=== PATIENT | male | born 1960 | race Caucasian/White ===

== ENCOUNTER 2023-11-27 20:50 | Observation (INO) ==
[2023-11-27 22:36] LABS: Basophils # (auto) 0.06 K/uL (0.00-0.20); Basophils % (auto) 0.5 %; Eosinophils # (auto) 0.14 K/uL (0.00-0.50); Eosinophils % (auto) 1.3 %; Hematocrit (blood only) 48.5 % (42.0-52.0); Hemoglobin 16.6 g/dl (14.0-18.0); Immature Granulocytes # (auto) 0.04 K/uL (0.01-0.20); Immature Granulocytes % (auto) 0.4 %; Lymphocytes # (auto) 1.49 K/uL (1.20-3.40); Lymphocytes % (auto) 13.4 %; Mean Corpuscular Hemoglobin 31.6 pg (25.0-34.0); Mean Corpuscular Hgb Conc 34.2 g/dL (32.0-36.0); Mean Corpuscular Volume 92.2 fL (80.0-100.0); Mean Platelet Volume 10.2 fL (9.4-12.4); Monocytes # (auto) 0.82 K/uL (0.11-0.59); Monocytes % (auto) 7.4 %; Neutrophils # (auto) 8.55 K/uL (1.40-6.50); Platelet Count 208 K/uL (130-400); RDW Coefficient of Variation 14.8 % (11.5-14.5); RDW Standard Deviation 50.5 fL (36.4-46.3); Red Blood Count 5.26 M/uL (4.70-6.10)
[2023-11-27 22:53] LABS: Appearance Urine Clear (Clear); Bacteria Urine Automated None Seen (None Seen); Bilirubin Urine Negative (Negative); Blood Urine Negative (Negative); Cast Urine Automated 0-2 /lpf (0-2); Color Urine Dark Yellow; Epithelial Cell Urine Auto 0-2 /hpf (0-2); Glucose Urine UA Negative (Negative); Ketones Urine Negative (Negative); Leukocyte Esterase Urine 1+ (Negative); Nitrite Urine Negative (Negative); Protein Urine Negative (Negative); RBC Urine Automated 0-2 /hpf (0-2); Specific Gravity Urine 1.024 (1.000-1.030); Urobilinogen Urine Negative (Negative); pH Urine 5.5 (4.5-7.5)
[2023-11-27 22:56] LABS: Albumin Globulin Ratio 1.4 (0.9-2); Albumin Level 4.3 gm/dl (3.4-5.0); BUN Creatinine Ratio 15.8 (10-20); Bilirubin,Total 0.3 mg/dl (0.2-1.0); Calcium 9.2 mg/dl (8.6-10.3); Creatinine Clr Calc Pharmacy 55.2 ml/min; Est GFR (Non-African American) 39.7 ml/min; Globulin 3.1 gm/dl (2.5-4.0); Potassium 4.5 mmol/L (3.5-5.1); Total Protein 7.4 gm/dl (6.0-8.3)
[2023-11-28] MEDS: SODIUM CHLORIDE 0.9% 1,000 ML IV ONE (01:37)
[2023-11-28] MEDS: ONDANSETRON INJ 2 MG/ML 2 ML VIAL IV STA (01:38)
[2023-11-28] MEDS: KETOROLAC TROMETHAMINE 15 MG/ML VIAL IV STA (01:39)
[2023-11-28] MEDS: HYDROmorphone INJ 1 MG/ML SYRINGE IV STA ×3 (01:40→04:27)
--- NOTE | 2023-11-28 02:19 | CT Scan Report ---
Exam(s): CT ABDOMEN + PELVIS Without Contrast EXAM: CT Abdomen and Pelvis Without Intravenous Contrast CLINICAL HISTORY: Reason for exam: eval for right ureteral stone. TECHNIQUE: Axial computed tomography images of the abdomen and pelvis without intravenous contrast. CTDI is 28.14 mGy and DLP is 1479.25 mGy-cm. Automated exposure control was utilized for the study. A dose lowering technique was utilized adhering to the principles of ALARA. COMPARISON: . FINDINGS: Lung bases: Unremarkable. No mass. No consolidation. ABDOMEN: Liver: Unremarkable. Gallbladder and bile ducts: Unremarkable. No calcified stones. No ductal dilation. Pancreas: Unremarkable. No ductal dilation. Spleen: Unremarkable. No splenomegaly. Adrenals: Unremarkable. No mass. Kidneys and ureters: Mild right hydronephrosis due to a proximal right ureteral stone seen at the right UP junction measuring 7.5 mm. Tiny stones within the left kidney, largest measuring 2.1 mm. Otherwise normal left kidney. Stomach and bowel: Scattered diverticulosis throughout the colon with no signs of diverticulitis. No obstruction. PELVIS: Appendix: Nonvisualized appendix. Bladder: The urinary bladder is decompressed. No stones. Reproductive: Nonspecific dystrophic calcification within the prostate gland. ABDOMEN and PELVIS: Intraperitoneal space: Unremarkable. No free air. No significant fluid collection. Bones/joints: Degenerative disease of the spine with posterior fusion at L5-S1. Minimal anterolisthesis of L4 on L5 with no pars defect. No acute fracture. No dislocation. Soft tissues: Small fat-containing umbilical hernia. Vasculature: Mild atherosclerotic disease of aorta with mild distal aneurysmal dilatation measuring 3.2 x 2.8 cm. Mild aneurysmal dilatation of the proximal right common iliac artery measuring 2.1 cm. The proximal left common iliac artery measures 1.3 cm. Lymph nodes: Unremarkable. No enlarged lymph nodes. IMPRESSION: 1. Mild right hydronephrosis due to a stone at the right UP junction measuring 7.5 mm. Nonobstructive left-sided intrarenal stones, largest measuring 2.1 mm. 2. Mild diverticulosis with no signs of diverticulitis. No bowel obstruction. Electronically signed by: Simona Claros MD 11/28/23 02:17 AM
[2023-11-28] MEDS: CEFEPIME 2,000 MG/20 ML VIAL IV STA (03:15)
--- NOTE | 2023-11-28 04:09 | History & Physical Report ---
Date of Service November 28, 2023 Assessment & Plan (1) Kidney stones: Plan: 63yo male with history of renal stones presenting with persistent right sided flank pain as well as nausea, vomiting, chills and difficulty passing urine. Found to have a 7.5mm obstructing stone at the right UPJ with mild right hydronephrosis. Also with elevation of Cr to 1.77 (from prior value of 0.81 in 2020 - do not have more recent baseline labs). Reports subjective fevers and chills. Mild leukocytosis with WBC=11.1 -Admit to medical -Strain urine -Pain control with Dilaudid PRN -IVF with LR at 125mL/hr x 2L ordered -Ceftriaxone empiric coverage 1gm IV daily - follow urine culture -Zofran PRN -Continue Flomax -Bladder scan as needed -Urology consultation appreciated Will keep patient NPO in case procedure is planned (2) JASON (acute kidney injury): Plan: Cr elevated to 1.77 - was 0.81 in 2021 -Management of renal stone as above -Avoid nephrotoxic agents -Renal dosing where needed -Repeat chemistry in AM Plan Chronic pain - with acute worsening due to obstructing stone with hydronephrosis -Continue home hydrocodone-acetaminophen -Continue home Gabapentin (written for 300mg po TID - patient reports only taking 300mg at night). -Dilaudid PRN for acute pain GERD - chronic. stable -Continue Protonix 40mg po daily CAD - patient with history of LAD stent with restenosis in 2018 s/p re-stenting. Additional disease involving distal LM, RCA. No chest pain. -Continue Plavix History of Present Illness Chief Complaint: right flank pain Primary Care Provider: Cristina Allen Geoff Cuenca is a 63yo male with history of HTN, HLP, CAD and renal stones presenting with right flank pain. He has had multiple kidney stones in the past - most recently passed 5 stones approximately 1 week ago. He follows with Urology - Dr. Arriola. He has had intermittent right flank pain ongoing for several days. He had a CT of the abdomen performed on 11/26/23 to look for kidney stones (has not yet received the results of this imaging study). Persistent right flank pain, tonight with nausea, vomiting as well as subjective fevers and chills and difficulty passing urine which prompted him to come to the ER. No additional complaints - denies chest pain, cough, SOB Allergies Allergy/AdvReac Type Severity Reaction Status Date / Time peanut Allergy Intermediate skin boil Verified 11/22/23 08:49 Home Medications Medication Instructions Recorded Confirmed Type clopidogrel 75 mg tablet (Plavix) 75 mg PO HS 05/28/19 11/28/23 History gabapentin 300 mg capsule 300 mg PO TID 05/28/19 11/28/23 History ibuprofen 200 mg tablet (Advil) 400 mg PO Q6H PRN Pain 10/23/20 11/22/23 History ciprofloxacin HCl 500 mg tablet 500 mg PO BID #6 tabs 10/27/20 11/22/23 Rx (Cipro) hydrocodone 5 mg-acetaminophen 325 1 tab PO Q6H PRN pain #15 tabs 10/27/20 11/28/23 Rx mg tablet tamsulosin 0.4 mg capsule (Flomax) 0.4 mg PO QPM #30 caps 11/22/23 11/28/23 Rx pantoprazole 40 mg tablet,delayed 40 mg PO DAILY 11/28/23 11/28/23 History release Past Med/Surg History Medical History (Updated 11/28/23 @ 05:11 by Luana Monroy DO) Hyperlipidemia Per records Hypertension Per records Morbid obesity Osteoarthritis Kidney stones CAD (coronary artery disease) Multiple cardiac stents- total of 7 (most recent 03/2018) PTCA= LM PTCA/stent to LAD 2004 PTCA and stent to RCA 2006 Stent to LCx 2010 Stent 2018 to LAD (had in-stent restenosis) Surgical History Hx of cystoscopy (~05/2019) with stent History of cardiac cath multiple cardiac stents x 7 (most recent 03/2018) Hx of appendectomy History of open reduction and internal fixation (ORIF) procedure left wrist History of lumbar spinal fusion History of lithotripsy Family History Father Family history of diabetes mellitus Other No family history of adverse response to anesthesia Social History Smoking Status: Current some day smoker Tobacco Type: Cigars Second Hand Exposure: No; Do You Dip or Chew Tobacco: No; Hx Alcohol Use: No Hx Substance Use: No Preferred Language: Maori Communication Ability: Effective Manager Energy Required: No Beliefs That Will Affect Care: None Current Living Situation: Spouse Other Information That Helps Us Care for You: No Feels Safe at Home: Yes Safety Concerns: Feels Safe At This Time Assistive Devices: Cane Review of Systems Review of Systems: All systems reviewed & are unremarkable except as noted in HPI & below Physical Exam Physical Exam: General: patient resting comfortably, NAD, non-toxic in appearance, AA&O x 4 Skin: warm, dry, intact, no rashes or lesions HEENT: NC/AT, PERRL, EOMI, anicteric sclera, conjunctiva without injection, external ear normal to inspection and nontender, nares patent, moist mucus membranes, dentition intact, no oropharyngeal lesions, neck supple, trachea midline, no LAD, no thyromegaly, no JVD Heart: +S1/S2, regular, no m/r/g Lungs: equal air entry bilaterally, no rales/rhonchi/wheezes Abd: +BS, soft, NT/ND, no masses/organomegaly/ascites, umbilical hernia, right flank pain on palpation Ext: warm, 2+ pulses in UE/LE bilaterally, no clubbing/cyanosis or edema Neuro: nonfocal, patient AA&O x 4, speech intact, no facial droop, moving all extremities on command with equal strength 5/5 Results & Data Results & Data Vital Signs (Past 12 Hours) Vital Signs Temp Pulse Pulse Resp BP BP Pulse Ox 11/28/23 03:26 95 11/28/23 03:12 178/97 H 11/28/23 03:12 91 11/28/23 03:10 91 11/28/23 03:00 90 11/28/23 02:50 96 11/28/23 02:40 94 11/28/23 02:20 93 11/28/23 02:10 94 11/28/23 02:00 77 93 11/28/23 01:50 72 92 11/28/23 01:42 75 13 95 11/28/23 01:39 186/110 H 11/28/23 01:24 82 9 L 96 11/28/23 01:22 74 11/28/23 01:21 78 13 94 11/28/23 01:17 78 17 172/118 H 96 11/27/23 21:19 36.5 C 87 22 200/94 H 93 O2 Del Method 11/28/23 03:26 11/28/23 03:12 11/28/23 03:12 11/28/23 03:10 11/28/23 03:00 11/28/23 02:50 11/28/23 02:40 11/28/23 02:20 11/28/23 02:10 11/28/23 02:00 11/28/23 01:50 11/28/23 01:42 11/28/23 01:39 11/28/23 01:24 11/28/23 01:22 11/28/23 01:21 11/28/23 01:17 11/27/23 21:19 Room Air Laboratory Results Laboratory Results WBC 11.10 K/ul (4.8-10.8) H 11/27/23 21:07 RBC 5.26 M/uL (4.70-6.10) 11/27/23 21:07 Hgb 16.6 g/dl (14.0-18.0) 11/27/23 21:07 Hct 48.5 % (42.0-52.0) 11/27/23 21:07 MCV 92.2 fL (80.0-100.0) 11/27/23 21:07 MCH 31.6 pg (25.0-34.0) 11/27/23 21:07 MCHC 34.2 g/dL (32.0-36.0) 11/27/23 21:07 RDW Std Deviation 50.5 fL (36.4-46.3) H 11/27/23 21:07 RDW Coeff of Lazarus 14.8 % (11.5-14.5) H 11/27/23 21:07 Plt Count 208 K/uL (130-400) 11/27/23 21:07 MPV 10.2 fL (9.4-12.4) 11/27/23 21:07 Immature Gran % (Auto) 0.4 % 11/27/23 21:07 Neut % (Auto) 77.0 % 11/27/23 21:07 Lymph % (Auto) 13.4 % 11/27/23 21:07 [place] % (Auto) 7.4 % 11/27/23 21:07 Eos % (Auto) 1.3 % 11/27/23 21:07 Baso % (Auto) 0.5 % 11/27/23 21:07 Neut # (Auto) 8.55 K/uL (1.40-6.50) H 11/27/23 21:07 Lymph # (Auto) 1.49 K/uL (1.20-3.40) 11/27/23 21:07 [place] # (Auto) 0.82 K/uL (0.11-0.59) H 11/27/23 21:07 Eos # (Auto) 0.14 K/uL (0.00-0.50) 11/27/23 21:07 Baso # (Auto) 0.06 K/uL (0.00-0.20) 11/27/23 21:07 Immature Gran # (Auto) 0.04 K/uL (0.01-0.20) 11/27/23 21:07 Sodium 136 mmol/L (136-145) 11/27/23 21:07 Potassium 4.5 mmol/L (3.5-5.1) 11/27/23 21:07 Chloride 104 mmol/L (98-107) 11/27/23 21:07 Carbon Dioxide 23 mmol/L (21-32) 11/27/23 21:07 Anion Gap 9 (3-11) 11/27/23 21:07 BUN 28 mg/dl (6-23) H 11/27/23 21:07 Creatinine 1.77 mg/dl (0.6-1.4) H 11/27/23 21:07 Est Cr Clr Drug Dosing 55.2 ml/min 11/27/23 21:07 Est GFR ( Amer) 46.0 ml/min 11/27/23 21:07 Est GFR (Non-Af Amer) 39.7 ml/min 11/27/23 21:07 BUN/Creatinine Ratio 15.8 (10-20) 11/27/23 21:07 Glucose 161 mg/dl (70-99(Fasting)) H 11/27/23 21:07 Calcium 9.2 mg/dl (8.6-10.3) 11/27/23 21:07 Total Bilirubin 0.3 mg/dl (0.2-1.0) 11/27/23 21:07 AST 21 U/L (13-39) 11/27/23 21:07 ALT 25 U/L (7-52) 11/27/23 21:07 Alkaline Phosphatase 80 U/L (34-104) 11/27/23 21:07 Total Protein 7.4 gm/dl (6.0-8.3) 11/27/23 21:07 Albumin 4.3 gm/dl (3.4-5.0) 11/27/23 21:07 Globulin 3.1 gm/dl (2.5-4.0) 11/27/23 21:07 Albumin/Globulin Ratio 1.4 (0.9-2) 11/27/23 21:07 Urine Color Dark Yellow 11/27/23 20:55 Urine Appearance Clear (Clear) 11/27/23 20:55 Urine pH 5.5 (4.5-7.5) 11/27/23 20:55 Ur Specific [place] 1.024 (1.000-1.030) 11/27/23 20:55 Urine Protein Negative (Negative) 11/27/23 20:55 Urine Glucose (UA) Negative (Negative) 11/27/23 20:55 Urine Ketones Negative (Negative) 11/27/23 20:55 Urine Blood Negative (Negative) 11/27/23 20:55 Urine Nitrite Negative (Negative) 11/27/23 20:55 Urine Bilirubin Negative (Negative) 11/27/23 20:55 Urine Urobilinogen Negative (Negative) 11/27/23 20:55 Ur Leukocyte Esterase 1+ (Negative) H 11/27/23 20:55 Urine WBC (Auto) 11-20 /hpf (0-5) H 11/27/23 20:55 Urine RBC (Auto) 0-2 /hpf (0-2) 11/27/23 20:55 U Hyaline Cast (Auto) 0-2 /lpf (0-2) 11/27/23 20:55 U Epithel Cells (Auto) 0-2 /hpf (0-2) 11/27/23 20:55 Urine Bacteria (Auto) None Seen (None Seen) 11/27/23 20:55 Impressions Abdomen/Pelvis CT 11/28/23 01:20 Exam(s): CT ABDOMEN + PELVIS Without Contrast EXAM: CT Abdomen and Pelvis Without Intravenous Contrast CLINICAL HISTORY: Reason for exam: eval for right ureteral stone. TECHNIQUE: Axial computed tomography images of the abdomen and pelvis without intravenous contrast. CTDI is 28.14 mGy and DLP is 1479.25 mGy-cm. Automated exposure control was utilized for the study. A dose lowering technique was utilized adhering to the principles of ALARA. COMPARISON: . FINDINGS: Lung bases: Unremarkable. No mass. No consolidation. ABDOMEN: Liver: Unremarkable. Gallbladder and bile ducts: Unremarkable. No calcified stones. No ductal dilation. Pancreas: Unremarkable. No ductal dilation. Spleen: Unremarkable. No splenomegaly. Adrenals: Unremarkable. No mass. Kidneys and ureters: Mild right hydronephrosis due to a proximal right ureteral stone seen at the right UP junction measuring 7.5 mm. Tiny stones within the left kidney, largest measuring 2.1 mm. Otherwise normal left kidney. Stomach and bowel: Scattered diverticulosis throughout the colon with no signs of diverticulitis. No obstruction. PELVIS: Appendix: Nonvisualized appendix. Bladder: The urinary bladder is decompressed. No stones. Reproductive: Nonspecific dystrophic calcification within the prostate gland. ABDOMEN and PELVIS: Intraperitoneal space: Unremarkable. No free air. No significant fluid collection. Bones/joints: Degenerative disease of the spine with posterior fusion at L5-S1. Minimal anterolisthesis of L4 on L5 with no pars defect. No acute fracture. No dislocation. Soft tissues: Small fat-containing umbilical hernia. Vasculature: Mild atherosclerotic disease of aorta with mild distal aneurysmal dilatation measuring 3.2 x 2.8 cm. Mild aneurysmal dilatation of the proximal right common iliac artery measuring 2.1 cm. The proximal left common iliac artery measures 1.3 cm. Lymph nodes: Unremarkable. No enlarged lymph nodes. IMPRESSION: 1. Mild right hydronephrosis due to a stone at the right UP junction measuring 7.5 mm. Nonobstructive left-sided intrarenal stones, largest measuring 2.1 mm. 2. Mild diverticulosis with no signs of diverticulitis. No bowel obstruction. Electronically signed by: Simona Claros MD 11/28/23 02:17 AM PG Care Time/CCT Total # of Minutes Spent Total Time Spent with Patient: Total time spent is greater than 50% in coordination of care (as documented) at patient's floor/unit and/or counseling patient: Coding Level of Care Code 34763 INT INP/OBS CARE 2/55MIN Diagnoses Kidney stones N20.0 JASON (acute kidney injury) N17.9
[2023-11-28] MEDS ORDERED: HYDROmorphone INJ 0.5 MG/0.5 ML SYR IV PRN (05:08)
[2023-11-28] MEDS ORDERED: ONDANSETRON INJ 2 MG/ML 2 ML VIAL IV PRN ×2 (05:08→13:31)
[2023-11-28] MEDS ORDERED: DOCUSATE SODIUM 100 MG CAP PO PRN (05:08)
[2023-11-28] MEDS: HYDROCODONE/ACETAMOPHEN 5/325MG TAB PO PRN (05:22)
[2023-11-28] MEDS: LACTATED RINGER'S 1,000 ML IV SCH (05:23)
--- NOTE | 2023-11-28 06:15 | Emergency Department Note ---
Impression & Plan Hydronephrosis with renal and ureteral calculus obstruction Admit to the [facility] ED Provider Note NAME: JACINTA BECKMAN AGE: 63 SEX: Male INFORMANT: Patient ED PROVIDER(S): Shanita Hunt DO CHIEF COMPLAINT: right flank pain PLAN: Disposition: admit to the [facility] MEDICAL DECISION MAKING: this is a 63-year-old male patient who presents to the emergency department with severe right flank pain. it has been ongoing for the past week. He noticed some increased difficulty voiding and pain into his right testicle. Patient has a longstanding history of ureteral stones. CT scan here shows an obstructing right-sided UPJ stone measuring 7.5 mm. Patient describes a fever earlier this evening and urine was questionably infected with 1+ leukocyte esterase and 11-20 white blood cells. Patient was treated with IV antibiotics here in the emergency department. He also received IV crystalloids and IV analgesia. Laboratory studies revealed a white blood cell count of 11.1. H&H were stable. BUN was 28 and creatinine was 1.7. Glucose was 161. We discussed the case with the [facility] Hospitalist and they will evaluate for further inpatient care. Triage Nursing notes: reviewed and agree With them. Vital Signs: reviewed and remarkable for hypertension Additional History obtained from: The patient's . Chronic Medical/Social Conditions affecting care: Multiple previous kidney stones Differential Diagnosis: obstructive uropathy, ureteral colic, infected kidney stone Diagnostics, independently interpreted by me: Imaging studies: CT scan of the abdomen/pelvis: As per stat rad HPI: 63 year old Male arrives for evaluation of right flank pain. patient has had increasing right flank pain over the past week. He is noticed throughout the day today has had increased difficulty voiding and vomiting. Patient gives a history of frequent kidney stones. In fact over the past week he believes he has passed 5 different stones. He was seen last Saturday by urology and they ordered a CT scan of the abdomen pelvis PAST MEDICAL HISTORY: See Below, PAST SURGICAL HISTORY: See Below, SOCIAL HISTORY: See Below, HOME MEDICATIONS: See list ALLERGIES: See list VITALS: See Below PHYSICAL EXAMINATION: HEENT: Head - normocephalic and atraumatic. Pupils are equal, round, and reactive to light. Extraocular eye muscles are intact, and sclera are anicteric. Nose - moist nasal mucosa without discharge. Mouth - moist buccal mucosa. Oropharynx is nonerythematous and there is no tonsillar exudate or edema noted. Neck: Supple; no JVD or cervical lymphadenopathy Heart: Regular rate and rhythm. There is a normal S1 and S2 with no murmurs, clicks, or gallops appreciated. Lungs: Clear to auscultation bilaterally with no wheezes, rales, or rhonchi. Abdomen: Soft, moderate right CVA tenderness. There are no palpable pulsatile masses or hepatosplenomegaly. There is no guarding, rigidity, or rebound noted. Extremities: No evidence of cyanosis, clubbing, or edema. There are easily palpable peripheral pulses. Skin: warm and dry with good turgor and no rashes. Emergency department treatment: IV normal saline, IV Dilaudid, IV Zofran, IV cefepime Emergency department course: Patient was evaluated in room B-12. A complete history and physical was performed. Previous electronic medical records were reviewed. An IV lock was initiated and labs were drawn as above. Urine specimen was collected. Patient was bolused with IV normal saline solution and given IV Dilaudid and Zofran for his pain and nausea. He did not have the results or any access to the results of his CT scan from yesterday. Will repeat that scan today. He required an additional dose of IV analgesia. Urinalysis was questionably infected so he was treated with IV cefepime. I reviewed the results of the CT scan with the patient and discussed the case with the [facility] Hospitalist. Past Med/Surg History Medical History Hyperlipidemia Per records Hypertension Per records Morbid obesity Osteoarthritis Kidney stones CAD (coronary artery disease) Multiple cardiac stents- total of 7 (most recent 03/2018) PTCA= LM PTCA/stent to LAD 2004 PTCA and stent to RCA 2006 Stent to LCx 2010 Stent 2018 to LAD (had in-stent restenosis) Surgical History Hx of cystoscopy (~05/2019) with stent History of cardiac cath multiple cardiac stents x 7 (most recent 03/2018) Hx of appendectomy History of open reduction and internal fixation (ORIF) procedure left wrist History of lumbar spinal fusion History of lithotripsy Family History Father Family history of diabetes mellitus Other No family history of adverse response to anesthesia Social History Smoking Status: Current some day smoker Tobacco Type: Cigars Second Hand Exposure: No; Do You Dip or Chew Tobacco: No; Hx Alcohol Use: No Hx Substance Use: No Preferred Language: Albanian Communication Ability: Effective Outdoor Adventure Instructor Required: No Beliefs That Will Affect Care: None Current Living Situation: Spouse Feels Safe at Home: Yes Assistive Devices: None Allergies Allergies Allergy/AdvReac Type Severity Reaction Status Date / Time peanut Allergy Intermediate skin boil Verified 11/22/23 08:49 Home Meds Home Medications Medication Instructions Recorded Confirmed clopidogrel 75 mg tablet (Plavix) 75 mg PO HS 05/28/19 11/28/23 gabapentin 300 mg capsule 300 mg PO TID 05/28/19 11/28/23 ibuprofen 200 mg tablet (Advil) 400 mg PO Q6H PRN Pain 10/23/20 11/22/23 pantoprazole 40 mg tablet,delayed 40 mg PO DAILY 11/28/23 11/28/23 release Previous Rx's Medication Instructions Recorded tamsulosin 0.4 mg capsule (Flomax) 0.4 mg PO QPM #30 caps 11/22/23 ciprofloxacin HCl 500 mg tablet 500 mg PO BID #6 tabs 11/28/23 (Cipro) hydrocodone 5 mg-acetaminophen 325 1 tab PO Q6H PRN pain #15 tabs 11/28/23 mg tablet Results & Data (ED) Vital Signs Vital Signs - 24 hr 11/28/23 01:17 11/28/23 01:21 11/28/23 01:22 Pulse Rate 78 74 Pulse Rate [Finger] 78 Pulse Rate from SpO2 Sensor 77 Respiratory Rate 17 13 Blood Pressure Blood Pressure [Left Arm] 172/118 H Blood Pressure Mean Blood Pressure Mean [Left Arm] 136 Pulse Oximetry 96 94 11/28/23 01:24 11/28/23 01:39 11/28/23 01:42 Pulse Rate 82 75 Pulse Rate [Finger] Pulse Rate from SpO2 Sensor 81 74 Respiratory Rate 9 L 13 Blood Pressure 186/110 H Blood Pressure [Left Arm] Blood Pressure Mean 140 Blood Pressure Mean [Left Arm] Pulse Oximetry 96 95 05/09/24 01:50 11/28/23 02:00 11/28/23 02:10 Pulse Rate 72 77 Pulse Rate [Finger] Pulse Rate from SpO2 Sensor 76 77 78 Respiratory Rate Blood Pressure Blood Pressure [Left Arm] Blood Pressure Mean Blood Pressure Mean [Left Arm] Pulse Oximetry 92 93 94 11/28/23 02:20 11/28/23 02:40 11/28/23 02:50 Pulse Rate Pulse Rate [Finger] Pulse Rate from SpO2 Sensor 74 74 76 Respiratory Rate Blood Pressure Blood Pressure [Left Arm] Blood Pressure Mean Blood Pressure Mean [Left Arm] Pulse Oximetry 93 94 96 11/28/23 03:00 11/28/23 03:10 11/28/23 03:12 Pulse Rate Pulse Rate [Finger] Pulse Rate from SpO2 Sensor 74 74 77 Respiratory Rate Blood Pressure Blood Pressure [Left Arm] Blood Pressure Mean Blood Pressure Mean [Left Arm] Pulse Oximetry 90 91 91 11/28/23 03:12 11/28/23 03:26 Pulse Rate Pulse Rate [Finger] Pulse Rate from SpO2 Sensor 77 Respiratory Rate Blood Pressure 178/97 H Blood Pressure [Left Arm] Blood Pressure Mean 131 Blood Pressure Mean [Left Arm] Pulse Oximetry 95 Laboratory Data 11/27/23 21:07 11/27/23 21:07 Lab Results 11/27/23 11/27/23 Range/Units 20:55 21:07 WBC 11.10 H (4.8-10.8) K/ul RBC 5.26 (4.70-6.10) M/uL Hgb 16.6 (14.0-18.0) g/dl Hct 48.5 (42.0-52.0) % MCV 92.2 (80.0-100.0) fL MCH 31.6 (25.0-34.0) pg MCHC 34.2 (32.0-36.0) g/dL RDW Std Deviation 50.5 H (36.4-46.3) fL RDW Coeff of Lazarus 14.8 H (11.5-14.5) % Plt Count 208 (130-400) K/uL MPV 10.2 (9.4-12.4) fL Immature Gran % (Auto) 0.4 % Neut % (Auto) 77.0 % Lymph % (Auto) 13.4 % Wise % (Auto) 7.4 % Eos % (Auto) 1.3 % Baso % (Auto) 0.5 % Neut # (Auto) 8.55 H (1.40-6.50) K/uL Lymph # (Auto) 1.49 (1.20-3.40) K/uL Wise # (Auto) 0.82 H (0.11-0.59) K/uL Eos # (Auto) 0.14 (0.00-0.50) K/uL Baso # (Auto) 0.06 (0.00-0.20) K/uL Immature Gran # (Auto) 0.04 (0.01-0.20) K/uL Sodium 136 (136-145) mmol/L Potassium 4.5 (3.5-5.1) mmol/L Chloride 104 (98-107) mmol/L Carbon Dioxide 23 (21-32) mmol/L Anion Gap 9 (3-11) BUN 28 H (6-23) mg/dl Creatinine 1.77 H (0.6-1.4) mg/dl Est Cr Clr Drug Dosing 55.2 ml/min Est GFR ( Amer) 46.0 ml/min Est GFR (Non-Af Amer) 39.7 ml/min BUN/Creatinine Ratio 15.8 (10-20) Glucose 161 H (70-99(Fasting)) mg/dl Calcium 9.2 (8.6-10.3) mg/dl Total Bilirubin 0.3 (0.2-1.0) mg/dl AST 21 (13-39) U/L ALT 25 (7-52) U/L Alkaline Phosphatase 80 (34-104) U/L Total Protein 7.4 (6.0-8.3) gm/dl Albumin 4.3 (3.4-5.0) gm/dl Globulin 3.1 (2.5-4.0) gm/dl Albumin/Globulin Ratio 1.4 (0.9-2) Urine Color Dark Yellow Urine Appearance Clear (Clear) Urine pH 5.5 (4.5-7.5) Ur Specific [place] 1.024 (1.000-1.030) Urine Protein Negative (Negative) Urine Glucose (UA) Negative (Negative) Urine Ketones Negative (Negative) Urine Blood Negative (Negative) Urine Nitrite Negative (Negative) Urine Bilirubin Negative (Negative) Urine Urobilinogen Negative (Negative) Ur Leukocyte Esterase 1+ H (Negative) Urine WBC (Auto) 11-20 H (0-5) /hpf Urine RBC (Auto) 0-2 (0-2) /hpf U Hyaline Cast (Auto) 0-2 (0-2) /lpf U Epithel Cells (Auto) 0-2 (0-2) /hpf Urine Bacteria (Auto) None Seen (None Seen) Administered Medications Discontinued Medications Hydrocodone Bitart/Acetaminophen (Hydrocodone/Acetamophen 5/325mg Tab) 1 tab PO Q6H PRN PRN Reason: pain Stop: 12/12/23 05:07 Last Admin: 11/28/23 11:32 Dose: 1 tab Documented By: Admin: 11/28/23 05:22 Dose: 1 tab Documented By: ERIC Hydromorphone HCl (Hydromorphone Inj 1 Mg/Ml Syringe) 1 mg IV NOW STA Stop: 11/28/23 01:20 Last Admin: 11/28/23 01:40 Dose: 1 mg Documented By: EDELMIRA Hydromorphone HCl (Hydromorphone Inj 1 Mg/Ml Syringe) 1 mg IV NOW STA Stop: 11/28/23 02:25 Last Admin: 11/28/23 02:41 Dose: 1 mg Documented By: EDELMIRA Hydromorphone HCl (Hydromorphone Inj 1 Mg/Ml Syringe) 1 mg IV NOW STA Stop: 11/28/23 04:03 Last Admin: 11/28/23 04:27 Dose: 1 mg Documented By: EDELMIRA Hydromorphone HCl (Hydromorphone Inj 0.5 Mg/0.5 Ml Syr) 1 mg IV Q3H PRN PRN Reason: Pain (6,7,8,9,10) Stop: 12/12/23 05:07 Last Admin: 11/28/23 08:00 Dose: 1 mg Documented By: AZAM Sodium Chloride (Nss) 1,000 mls @ 999 mls/hr IV .Q1H1M ONE Stop: 11/28/23 02:19 Last Infusion: 11/28/23 03:16 Dose: Infused Documented By: Admin: 11/28/23 01:37 Dose: 999 mls/hr Documented By: EDELMIRA Cefepime HCl (Maxipime) 2,000 mg in 20 mls @ 5 mls/min IV NOW STA; Protocol Stop: 11/28/23 02:58 Last Admin: 11/28/23 03:15 Dose: 5 mls/min Documented By: EDELMIRA Lactated Ringer's (Lr) 1,000 mls @ 125 mls/hr IV .Q8H CARLOS Stop: 11/28/23 21:07 Last Admin: 11/28/23 16:18 Dose: 125 mls/hr Documented By: Infusion: 11/28/23 13:23 Dose: Infused Documented By: Admin: 11/28/23 05:23 Dose: 125 mls/hr Documented By: ERIC Ceftriaxone Sodium (Rocephin) 2,000 mg in 50 mls @ 100 mls/hr IV Q24H CARLOS Stop: 12/08/23 08:59 Last Infusion: 11/28/23 08:41 Dose: Infused Documented By: Admin: 11/28/23 08:06 Dose: 100 mls/hr Documented By: AZAM Ketorolac Tromethamine (Ketorolac Tromethamine 15 Mg/Ml Vial) 15 mg IV ONE STA Stop: 11/27/23 21:27 Last Admin: 11/28/23 01:39 Dose: Not Given Documented By: EDELMIRA Ondansetron HCl (Ondansetron Inj 2 Mg/Ml 2 Ml Vial) 4 mg IV NOW STA Stop: 11/28/23 01:20 Last Admin: 11/28/23 01:38 Dose: 4 mg Documented By: EDELMIRA Pantoprazole Sodium (Pantoprazole 40 Mg Tab) 40 mg PO DAILY CARLOS Stop: 12/28/23 08:59 Last Admin: 11/28/23 08:47 Dose: 40 mg Documented By: AZAM Imaging Data Radiologist's Impression: Abdomen/Pelvis CT 11/28/23 01:20 Exam(s): CT ABDOMEN + PELVIS Without Contrast EXAM: CT Abdomen and Pelvis Without Intravenous Contrast CLINICAL HISTORY: Reason for exam: eval for right ureteral stone. TECHNIQUE: Axial computed tomography images of the abdomen and pelvis without intravenous contrast. CTDI is 28.14 mGy and DLP is 1479.25 mGy-cm. Automated exposure control was utilized for the study. A dose lowering technique was utilized adhering to the principles of ALARA. : . FINDINGS: Lung bases: Unremarkable. No mass. No consolidation. ABDOMEN: Liver: Unremarkable. Gallbladder and bile ducts: Unremarkable. No calcified stones. No ductal dilation. Pancreas: Unremarkable. No ductal dilation. Spleen: Unremarkable. No splenomegaly. Adrenals: Unremarkable. No mass. Kidneys and ureters: Mild right hydronephrosis due to a proximal right ureteral stone seen at the right UP junction measuring 7.5 mm. Tiny stones within the left kidney, largest measuring 2.1 mm. Otherwise normal left kidney. Stomach and bowel: Scattered diverticulosis throughout the colon with no signs of diverticulitis. No obstruction. PELVIS: Appendix: Nonvisualized appendix. Bladder: The urinary bladder is decompressed. No stones. Reproductive: Nonspecific dystrophic calcification within the prostate gland. ABDOMEN and PELVIS: Intraperitoneal space: Unremarkable. No free air. No significant fluid collection. Bones/joints: Degenerative disease of the spine with posterior fusion at L5-S1. Minimal anterolisthesis of L4 on L5 with no pars defect. No acute fracture. No dislocation. Soft tissues: Small fat-containing umbilical hernia. Vasculature: Mild atherosclerotic disease of aorta with mild distal aneurysmal dilatation measuring 3.2 x 2.8 cm. Mild aneurysmal dilatation of the proximal right common iliac artery measuring 2.1 cm. The proximal left common iliac artery measures 1.3 cm. Lymph nodes: Unremarkable. No enlarged lymph nodes. IMPRESSION: 1. Mild right hydronephrosis due to a stone at the right UP junction measuring 7.5 mm. Nonobstructive left-sided intrarenal stones, largest measuring 2.1 mm. 2. Mild diverticulosis with no signs of diverticulitis. No bowel obstruction. Electronically signed by: Simona Claros MD 11/28/23 02:17 AM Discharge Plan Visit Data Chief Complaint: Unable to Void Stated Complaint: KIDNEY STONES, BACK/ABD PAIN, UNABLE TO VOID ED Provider: Shanita Hunt Discharge Problem: Hydronephrosis with renal and ureteral calculus obstruction Patient Disposition: Admitted As Inpatient Discharge Instructions Interventions: ED Discharge Assessment Last Done: 11/28/23 04:52
--- NOTE | 2023-11-28 07:40 | Hospitalist Progress Note ---
Date of Service November 28, 2023 Assessment & Plan (1) Kidney stones: Plan: 63yo male with history of renal stones presenting with persistent right sided flank pain & 7.5mm obstructing stone at the right UPJ with mild right hydronephrosis. Reports subjective fevers and chills. Mild leukocytosis with WBC=11.1 -Ceftriaxone empiric coverage 1gm IV daily - follow urine culture -Continue Flomax as endorsed difficulty passing urine -Urology consultation,Will keep patient NPO in case procedure is planned (2) JASON (acute kidney injury): Plan: Cr elevated to 1.77 - was 0.81 in 2021 jason with CKD3 concern for obstructive uropathy Plan Chronic pain - with acute worsening due to obstructing stone with hydronephrosis -Continue home hydrocodone-acetaminophen -Continue home Gabapentin (written for 300mg po TID - patient reports only taking 300mg at night). -Dilaudid PRN for acute pain GERD - chronic. stable -Continue Protonix 40mg po daily CAD - patient with history of LAD stent with restenosis in 2018 s/p re-stenting. Additional disease involving distal LM, RCA. No chest pain. -Continue Plavix Admission and Anticipated Discharge Date Admission Date: November 28, 2023 Results & Data Results & Data Vital Signs (Past 12 Hours) Vital Signs Temp Pulse Pulse Resp BP BP BP 11/28/23 07:08 97.7 F 65 18 162/90 H 11/28/23 05:20 11/28/23 05:19 97.5 F L 69 20 170/97 H 11/28/23 04:42 71 18 177/96 H 11/28/23 03:26 11/28/23 03:12 178/97 H 11/28/23 03:12 11/28/23 03:10 11/28/23 03:00 11/28/23 02:50 11/28/23 02:40 11/28/23 02:20 11/28/23 02:10 11/28/23 02:00 77 11/28/23 01:50 72 11/28/23 01:42 75 13 11/28/23 01:39 186/110 H 11/28/23 01:24 82 9 L 11/28/23 01:22 74 11/28/23 01:21 78 13 11/28/23 01:17 78 17 172/118 H 11/27/23 21:19 97.7 F 87 22 200/94 H Pulse Ox O2 Del Method 11/28/23 07:08 92 Room Air 11/28/23 05:20 Room Air 11/28/23 05:19 95 Room Air 11/28/23 04:42 92 Room Air 11/28/23 03:26 95 11/28/23 03:12 11/28/23 03:12 91 11/28/23 03:10 91 11/28/23 03:00 90 11/28/23 02:50 96 11/28/23 02:40 94 11/28/23 02:20 93 11/28/23 02:10 94 11/28/23 02:00 93 11/28/23 01:50 92 11/28/23 01:42 95 11/28/23 01:39 11/28/23 01:24 96 11/28/23 01:22 11/28/23 01:21 94 11/28/23 01:17 96 11/27/23 21:19 93 Room Air PG Care Time/CCT Total # of Minutes Spent Total Time Spent with Patient: Total time spent is greater than 50% in coordination of care (as documented) at patient's floor/unit and/or counseling patient: Coding Diagnoses Kidney stones N20.0 JASON (acute kidney injury) N17.9
--- NOTE | 2023-11-28 07:42 | Urology Consultation ---
Date of Consultation November 28, 2023 Assessment & Plan (1) Right flank pain: (2) Calculus of proximal right ureter: 63 yo/M admitted for right flank pain secondary to an obstructing right UPJ stone He is afebrile and hemodynamically stable Labs reviewedcreatinine 0.77, WBC 11.10 on 11/26, no new labs at time of visit today Urinalysis showed 1+ LE, 11-20 WBC, negative for bacteria Urine culture is pending, currently on IV Ceftriaxone Continues to have right flank pain We discussed options for stone management including right ureteral stent placement and possible stone treatment today versus discharge to home if pain is controlled and schedule outpatient procedure After discussion, he wishes to proceed with surgery today Will proceed to OR for cystoscopy, right ureteroscopy, laser lithotripsy and right ureteral stent placement Keep n.p.o. for procedure Continue with scheduled IV ceftriaxone preoperatively Risk and benefits of procedure to be reviewed with patient by Dr. Davis Continue supportive care Plan Attending note: Patient independently assessed, examined, interviewed, and evaluated. Agree with note as above. Patient's vitals and labs were all reviewed. Pertinent values in the HPI and plan section. Imaging was reviewed interpreted by myself. Agree with read. Vitals were reviewed. Discussed findings extensively with patient and family. Reviewed with nurse practitioner as well as consulting physicians/team. Patient's complicated medical and surgical history was reviewed and summarized above. Patient's surgical, medical, social, and family history were all reviewed with pertinent values as above. Discussed patient's current diagnosis as well as concerns and issues. Reviewed different options moving forward. Discussed potential risks and benefits as well as possible options and concerns. All labs and values were assessed. Hemoglobin 16.6. White count 11.1. Creatinine 1.77. Patient's previous medications as well as current vitals were reviewed. He is dealing with mild hypertension. No significant tachycardia. No significant fever or chills. Is satting 95% on room air. Patient's imaging was reviewed interpreted by myself. Has a moderate obstructing stone of the UPJ/proximal ureter causing hydronephrosis on the right. Stone is approximately 7 mm. Does appear to be causing obstruction. Patient had additional small stones on the left. Reviewed potential surgical options and interventions. Discussed potential issues and concerns related to intervention. Risk and benefits were discussed extensively with patient and any available family. Discussed potential risks related to anesthesia. Discussed risks of bleeding infection and injury. Discussed options for conservative measure and maximum expulsion medical therapy and symptom controlled. Discussed ESWL. Discussed Ureteroscopy with extraction and/or laser lithotripsy. Risks and benefits were discussed. Stone free rates were also discussed as well as possibility of multiple procedures. Ureteral stents were discussed as well as post-operative issues and pain management. All questions were answered. Risks and benefits discussed at length for procedure. These include bleeding, infection, injury to surrounding tissues or organs, and risks associated with anesthesia. Patient states understanding and agrees to proceed. Will sign consent and proceed. Plan for cystoscopy with Right ureteroscopy and right stone treatment. History of Present Illness Attending Physician: Remberto Cody MD History of Present Illness This is a 63-year-old male with longstanding history of bilateral nephrolithiasis who presented to the emergency department today with worsening right flank pain. On arrival, he was afebrile, hypertensive but otherwise stable vitals. Once lab work reviewed and showed WBC 11.10, hemoglobin 16.6, creatinine 1.77. Urinal ysis showed 1+ LE, 11-20 WBC, negative for bacteria. CT abdomen pelvis showed inflammation mild right hydronephrosis secondary to an obstructing right 7.5 mm stone at the right UPJ; major nonobstructing left renal stones. ED course: IV fluids, hydromorphone, BMP next week ketorolac, ondansetron and IV cefepime. He was admitted to the hospital medicine service. Urology is consulted for right ureteral stone. Patient seen and examined at bedside this morning. He is resting in bed, no apparent distress. He reports intermittent right flank discomfort. He is voiding spontaneously. No dysuria or hematuria. Denies nausea, vomiting, fever or chills at present. He is NPO at present. Allergies Allergy/AdvReac Type Severity Reaction Status Date / Time peanut Allergy Intermediate skin boil Verified 11/22/23 08:49 Home Medications Medication Instructions Recorded Confirmed Type clopidogrel 75 mg tablet (Plavix) 75 mg PO HS 05/28/19 11/28/23 History gabapentin 300 mg capsule 300 mg PO TID 05/28/19 11/28/23 History ibuprofen 200 mg tablet (Advil) 400 mg PO Q6H PRN Pain 10/23/20 11/22/23 History ciprofloxacin HCl 500 mg tablet 500 mg PO BID #6 tabs 10/27/20 11/22/23 Rx (Cipro) hydrocodone 5 mg-acetaminophen 325 1 tab PO Q6H PRN pain #15 tabs 10/27/20 11/28/23 Rx mg tablet tamsulosin 0.4 mg capsule (Flomax) 0.4 mg PO QPM #30 caps 11/22/23 11/28/23 Rx pantoprazole 40 mg tablet,delayed 40 mg PO DAILY 11/28/23 11/28/23 History release Patient History Medical History Hyperlipidemia Per records Hypertension Per records Morbid obesity Osteoarthritis Kidney stones CAD (coronary artery disease) Multiple cardiac stents- total of 7 (most recent 03/2018) PTCA= LM PTCA/stent to LAD 2004 PTCA and stent to RCA 2006 Stent to LCx 2010 Stent 2018 to LAD (had in-stent restenosis) Surgical History Hx of cystoscopy (~05/2019) with stent History of cardiac cath multiple cardiac stents x 7 (most recent 03/2018) Hx of appendectomy History of open reduction and internal fixation (ORIF) procedure left wrist History of lumbar spinal fusion History of lithotripsy Family History Father Family history of diabetes mellitus Other No family history of adverse response to anesthesia Social History Smoking Status: Current some day smoker Tobacco Type: Cigars Second Hand Exposure: No; Do You Dip or Chew Tobacco: No; Hx Alcohol Use: No Hx Substance Use: No Preferred Language: Romanian Communication Ability: Effective Analytical Sciences Director Required: No Beliefs That Will Affect Care: None Current Living Situation: Spouse Other Information That Helps Us Care for You: No Feels Safe at Home: Yes Safety Concerns: Feels Safe At This Time Assistive Devices: None Review of Systems Review of Systems: All systems reviewed & are unremarkable except as noted in HPI & below Physical Exam Constitutional: well developed, well nourished and + obese; no acute distress Respiratory: normal respiratory effort; no respiratory distress and no labored breathing Gastrointestinal (Abdomen): Inspection/Auscultation: abdomen normal to inspection Musculoskeletal: Head/Neck/Chest: normocephalic Neurologic: moves all extremities and awake Psychiatric: Orientation: alert and oriented x 3 Results & Data Vital Signs (Past 12 Hours) Vital Signs Temp Pulse Pulse Resp BP BP BP 11/28/23 07:08 36.5 C 65 18 162/90 H 11/28/23 05:20 11/28/23 05:19 36.4 C L 69 20 170/97 H 11/28/23 04:42 71 18 177/96 H 11/28/23 03:26 11/28/23 03:12 178/97 H 11/28/23 03:12 11/28/23 03:10 11/28/23 03:00 11/28/23 02:50 11/28/23 02:40 11/28/23 02:20 11/28/23 02:10 11/28/23 02:00 77 11/28/23 01:50 72 11/28/23 01:42 75 13 11/28/23 01:39 186/110 H 11/28/23 01:24 82 9 L 11/28/23 01:22 74 11/28/23 01:21 78 13 11/28/23 01:17 78 17 172/118 H 11/27/23 21:19 36.5 C 87 22 200/94 H Pulse Ox O2 Del Method 11/28/23 07:08 92 Room Air 11/28/23 05:20 Room Air 11/28/23 05:19 95 Room Air 11/28/23 04:42 92 Room Air 11/28/23 03:26 95 11/28/23 03:12 11/28/23 03:12 91 11/28/23 03:10 91 11/28/23 03:00 90 11/28/23 02:50 96 11/28/23 02:40 94 11/28/23 02:20 93 11/28/23 02:10 94 11/28/23 02:00 93 11/28/23 01:50 92 11/28/23 01:42 95 11/28/23 01:39 11/28/23 01:24 96 11/28/23 01:22 11/28/23 01:21 94 11/28/23 01:17 96 11/27/23 21:19 93 Room Air PG Care Time/CCT Total # of Minutes Spent Total Time Spent with Patient: Total time spent is greater than 50% in coordination of care (as documented) at patient's floor/unit and/or counseling patient: Coding Level of Care Code 30588 IN/OBS CONSULT LVL 4,60M Diagnoses Right flank pain R10.9 Calculus of proximal right ureter N20.1
[2023-11-28] MEDS: HYDROmorphone INJ 0.5 MG/0.5 ML SYR IV PRN (08:00)
[2023-11-28] MEDS: cefTRIAXone SODIUM 2,000 MG/50 ML BAG IV SCH (08:06)
[2023-11-28] MEDS: PANTOprazole 40 MG TAB PO SCH (08:47)
[2023-11-28] MEDS ORDERED: ATROPINE SULFATE 0.1 MG/ML 10ML SYR IV PRN (13:31)
[2023-11-28] MEDS ORDERED: fentaNYL citrate PF 100 MCG/2 ML VIAL IV PRN (13:31)
[2023-11-28] MEDS ORDERED: ePHEDrine sulfate 50 MG/ML AMP IV PRN (13:31)
--- NOTE | 2023-11-28 13:31 | Anesthesiology Consultation ---
Date of Service November 28, 2023 Assessment & Plan Chart Review Chart Review: Acceptable Risk for Surgery and Patient NOT seen in Pre Admission Testing Consults Requested none ASA ASA3 Proposed Anesthesia Anesthesia Type: General Risk / Benefits Reviewed With: PT / POA / Parent / Guardian, Accepts Plan and Informed Consent Obtained History Surgery Operation Date: 11/28/23 10:00 Proposed Procedures p Cystoscopy, Right Ureteroscopy, Laser Lithotripsy, Right Stent Placement - Garry Davis, DO Height/Weight Height: 5 ft 8 in Weight: 129 kg Allergies Allergy/AdvReac Type Severity Reaction Status Date / Time peanut Allergy Intermediate skin boil Verified 11/22/23 08:49 Medications Home Medications Medication Instructions Recorded Confirmed Last Taken clopidogrel 75 mg tablet (Plavix) 75 mg PO HS 05/28/19 11/28/23 10/22/20 17:00 gabapentin 300 mg capsule 300 mg PO TID 05/28/19 11/28/23 10/26/20 20:00 ibuprofen 200 mg tablet (Advil) 400 mg PO Q6H PRN Pain 10/23/20 11/22/23 10/25/20 22:00 ciprofloxacin HCl 500 mg tablet 500 mg PO BID #6 tabs 10/27/20 11/22/23 Unknown (Cipro) hydrocodone 5 mg-acetaminophen 325 1 tab PO Q6H PRN pain #15 tabs 10/27/20 11/28/23 Unknown mg tablet tamsulosin 0.4 mg capsule (Flomax) 0.4 mg PO QPM #30 caps 11/22/23 11/28/23 Unknown pantoprazole 40 mg tablet,delayed 40 mg PO DAILY 11/28/23 11/28/23 Unknown release Active Medications Generic Name Dose Route Start Last Admin Trade Name Freq PRN Reason Stop Dose Admin Hydrocodone Bitart/Acetaminophen 1 tab 11/28/23 05:08 11/28/23 11:32 Hydrocodone/Acetamophen 5/325mg Tab PO 12/12/23 05:07 1 tab Q6H PRN Administration pain Hydromorphone HCl 1 mg 11/28/23 05:08 11/28/23 08:00 Hydromorphone Inj 0.5 Mg/0.5 Ml Syr IV 12/12/23 05:07 1 mg Q3H PRN Administration Pain (6,7,8,9,10) Lactated Ringer's 1,000 mls @ 125 mls/hr 11/28/23 05:08 11/28/23 05:23 Lr IV 11/28/23 21:07 125 mls/hr .Q8H CARLOS Administration Ceftriaxone Sodium 2,000 mg in 50 mls @ 100 mls/hr 11/28/23 09:00 11/28/23 08:41 Rocephin IV 12/08/23 08:59 Infused Q24H CARLOS Infusion Pantoprazole Sodium 40 mg 11/28/23 09:00 11/28/23 08:47 Pantoprazole 40 Mg Tab PO 12/28/23 08:59 40 mg DAILY CARLOS Administration NPO Date Last Intake of Fluids: 11/28/23 Time Last Intake of Fluids: 11:30 Last Intake of Fluids Comment: sip with med Date Last Intake of Solids: 11/27/23 Time Last Intake of Solids: 17:00 Past Medical History Medical History Hyperlipidemia Per records Hypertension Per records Morbid obesity Osteoarthritis Kidney stones CAD (coronary artery disease) Multiple cardiac stents- total of 7 (most recent 03/2018) PTCA= LM PTCA/stent to LAD 2004 PTCA and stent to RCA 2006 Stent to LCx 2010 Stent 2018 to LAD (had in-stent restenosis) Past Family History Family History Father Family history of diabetes mellitus Other No family history of adverse response to anesthesia Past Surgical History Surgical History Hx of cystoscopy (~05/2019) with stent History of cardiac cath multiple cardiac stents x 7 (most recent 03/2018) Hx of appendectomy History of open reduction and internal fixation (ORIF) procedure left wrist History of lumbar spinal fusion History of lithotripsy Past Anesthesia History No Hx of Anesthesia Complications and No Family Hx of Anesthesia Complications Social History Smoking Status: Current some day smoker tobacco type: cigars Do You Dip or Chew Tobacco: No Hx Alcohol Use: No Hx Substance Use: No substance use type: does not use Review of Systems ROS Unobtainable: All systems reviewed & are unremarkable except as noted in HPI & below Physical Exam Vital Signs Last Vital Signs Temp 36.6 C 11/28/23 12:50 Pulse 72 11/28/23 12:50 Resp 22 11/28/23 12:50 BP 179/93 H 11/28/23 12:50 Pulse Ox 95 11/28/23 12:50 O2 Del Method Room Air 11/28/23 12:50 Constitutional + acute distress and + morbidly obese ENMT Mouth: no TMJ abnormality Thyromental Distance: > or= 3.5 Finger Breadths Mallampati Class: IV Neck normal visual inspection and trachea midline; neck extension not limited Respiratory normal respiratory effort Auscultation: lungs clear to auscultation bilaterally Cardiovascular Rate/Rhythm: regular rate and regular rhythm Heart Sounds: no murmur Musculoskeletal Spine: normal cervical ROM Extremities: full ROM of extremities Neurologic moves all extremities Psychiatric Orientation: alert and oriented x 3 Testing Laboratory Results 11/27/23 21:07 11/27/23 21:07 Urine Color Dark Yellow 11/27/23 20:55 Urine Appearance Clear (Clear) 11/27/23 20:55 Urine pH 5.5 (4.5-7.5) 11/27/23 20:55 Ur Specific [place] 1.024 (1.000-1.030) 11/27/23 20:55 Urine Protein Negative (Negative) 11/27/23 20:55 Urine Glucose (UA) Negative (Negative) 11/27/23 20:55 Urine Ketones Negative (Negative) 11/27/23 20:55 Urine Nitrite Negative (Negative) 11/27/23 20:55 Ur Leukocyte Esterase 1+ (Negative) H 11/27/23 20:55 Urine WBC (Auto) 11-20 /hpf (0-5) H 11/27/23 20:55 Urine RBC (Auto) 0-2 /hpf (0-2) 11/27/23 20:55 U Hyaline Cast (Auto) 0-2 /lpf (0-2) 11/27/23 20:55 U Epithel Cells (Auto) 0-2 /hpf (0-2) 11/27/23 20:55 Urine Bacteria (Auto) None Seen (None Seen) 11/27/23 20:55
[2023-11-28] MEDS ORDERED: fentaNYL citrate PF 100 MCG/2 ML VIAL ONE (14:03)
[2023-11-28] MEDS ORDERED: MIDAZOLAM HCL 1 MG/ML 2ML VIAL ONE (14:03)
[2023-11-28] MEDS ORDERED: PROPOFOL IV EMULSION 10 MG/ML 20 ML VIAL IV ONE ×2 (14:23→14:44)
[2023-11-28] MEDS ORDERED: ROCURONIUM BROMIDE 10 MG/ML 5 ML VIAL IV ONE (14:23)
[2023-11-28] MEDS ORDERED: LIDOCAINE 2% 2 ML VIAL/AMP(20MG/ML) INFIL ONE (14:23)
[2023-11-28] MEDS ORDERED: SUCCINYLCHOLINE CHLORIDE 20 MG/ML 10 ML VIAL IV ONE (14:23)
[2023-11-28] MEDS ORDERED: ALBUTEROL HFA 8 GM INHALER INH ONE (14:23)
[2023-11-28] MEDS ORDERED: ONDANSETRON INJ 2 MG/ML 2 ML VIAL ONE (14:23)
[2023-11-28] MEDS ORDERED: ePHEDrine sulfate 50 MG/5 ML SYR ONE (14:28)
--- NOTE | 2023-11-28 14:57 | Operative Report ---
[facility] Post Operative Report Pre & Post Diagnosis Operation Date: 11/28/23 10:00 Pre-Op Diagnosis: Right flank pain; Calculus of proximal right ureter Post-Op Diagnosis: Right flank pain; Calculus of proximal right ureter I identified the patient and participated in the time-out.: Yes Procedure Operation Date: 11/28/23 10:00 Actual Procedures p Cystoscopy with Right Ureteroscopy, Laser Lithotripsy, stone basket extraction, retrograde pyelogram, ureteral dilation, and Right Stent Placement(Right) - Garry Davis DO Surgeon Garry Davis, II, DO Mdm Developer None Estimated Blood Loss 1 Findings Consistent with Post-Op Diagnosis Stone destroyed to dust and small fragments and larger fragments removed. 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 Specimens Stone Fragments - Right Renal Drains 6 Fr Multilength Anesthesia Type General Complications none Disposition Disposition: Recovery Room Indications Patient with bothersome stones. Risks and benefits discussed at length. Description of Procedure Patient was consented and brought back to the operating room. Patient was placed under anesthesia in the supine position and moved to the dorsal lithotomy position. Patient was prepped and draped in the regular sterile fashion. A time out was completed identifying the correct patient and procedure. A 30degree Cystoscope was placed into the bladder and the entire bladder was examined. The UO's were identified. The UO was cannulized with a catheter and a retrograde pyelogram was completed. A wire was then placed. A ureteral access sheath and second safety wire was placed. The flexible ureteroscope was taken into the ureter. A stricture of the distal ureter and mid ureter was dilated. The scope was advanced. The entire ureter and renal pelvis were examined. The stones were identified. A laser fiber was selected and the stones were pulverized to dust and small fragments. Larger fragments were grasped and removed and sent for analysis. The entire area was once again examined. No residual large fragments or areas of concern were noted. The scope was slowly removed with the wire left in place. Contrast was placed through the scope for a pyelogram to assist in stent placement. The entire ureter was examined as the scope was slowly removed. No obstructions or other areas of concern were noted. With the wire in place, a 6 Fr Double J stent was placed. It was confirmed with fluoroscopy. With the stent in place, the bladder was emptied. The scope was removed. The patient was cleaned, aroused from anesthesia, and transferred to the pacu in stable condition having tolerated the procedure well with no complications. I was present and participated in all aspects of the procedure. The patient will be monitored in the PACU until transferred. Plan to remove stent in approx 1-2 weeks. Will transfer to floor for observation. I attest to the content of the Intraoperative Record and any orders documented therein. Any exceptions are noted below.
--- NOTE | 2023-11-28 15:23 | Anesthesiology Progress Note ---
Date of Service November 28, 2023 Anesthesia Post Procedure Vital Signs Vital Signs: Temp Pulse Pulse Pulse Resp BP BP 11/28/23 15:15 88 22 149/99 H 11/28/23 15:06 36.4 C L 93 H 22 187/100 H 11/28/23 12:50 36.6 C 72 22 11/28/23 07:08 36.5 C 65 18 11/28/23 05:20 11/28/23 05:19 36.4 C L 69 20 170/97 H 11/28/23 04:42 71 18 177/96 H 11/28/23 03:26 11/28/23 03:12 178/97 H 11/28/23 03:12 11/28/23 03:10 11/28/23 03:00 11/28/23 02:50 11/28/23 02:40 11/28/23 02:20 11/28/23 02:10 11/28/23 02:00 77 11/28/23 01:50 72 11/28/23 01:42 75 13 11/28/23 01:39 186/110 H 11/28/23 01:24 82 9 L 11/28/23 01:22 74 11/28/23 01:21 78 13 11/28/23 01:17 78 17 172/118 H 11/27/23 21:19 36.5 C 87 22 200/94 H BP Pulse Ox O2 Del Method O2 Flow Rate 11/28/23 15:15 96 Oxymask 11/28/23 15:06 96 Oxymask 10 11/28/23 12:50 179/93 H 95 Room Air 11/28/23 07:08 162/90 H 92 Room Air 11/28/23 05:20 Room Air 11/28/23 05:19 95 Room Air 11/28/23 04:42 92 Room Air 11/28/23 03:26 95 11/28/23 03:12 11/28/23 03:12 91 11/28/23 03:10 91 11/28/23 03:00 90 11/28/23 02:50 96 11/28/23 02:40 94 11/28/23 02:20 93 11/28/23 02:10 94 11/28/23 02:00 93 11/28/23 01:50 92 11/28/23 01:42 95 11/28/23 01:39 11/28/23 01:24 96 11/28/23 01:22 11/28/23 01:21 94 11/28/23 01:17 96 11/27/23 21:19 93 Room Air Transfer of Care Handoff Completed per policy Notes Mental Status: alert / awake / arousable Patient Amnestic to Procedure: Yes Nausea / Vomiting: adequately controlled Pain: adequately controlled Airway Patency, RR, SpO2: stable & adequate BP & HR: stable & adequate Hydration State: stable & adequate Anesthetic Complications: no major complications apparent and Pt Satisfied with anesthetic care
--- NOTE | 2023-11-28 17:11 | Discharge Summary ---
Discharge Summary Date of Service November 28, 2023 Notes For Next Care Provider needs urology follow up continues cipro flomax and hydrocodone Admission HPI Per Admitting Provider Geoff Cuenca is a 63yo male with history of HTN, HLP, CAD and renal stones presenting with right flank pain. He has had multiple kidney stones in the past - most recently passed 5 stones approximately 1 week ago. He follows with Urology - Dr. Arriola. He has had intermittent right flank pain ongoing for several days. He had a CT of the abdomen performed on 11/26/23 to look for kidney stones (has not yet received the results of this imaging study). Persistent right flank pain, tonight with nausea, vomiting as well as subjective fevers and chills and difficulty passing urine which prompted him to come to the ER. No additional complaints - denies chest pain, cough, SOB Principal Dx & Hospital Course #1 = Principal Diagnosis (1) Kidney stones: 63yo male with history of renal stones presenting with persistent right sided flank pain & 7.5mm obstructing stone at the right UPJ with mild right hydronephrosis. Reports subjective fevers and chills. Mild leukocytosis with WBC=11.1 -discharged on cipro -Continue Flomax as endorsed difficulty passing urine -Urology consultation,cysto, right laser lithotripsy and stent Dr Davis (2) JASON (acute kidney injury): Cr elevated to 1.77 - was 0.81 in 2021 jason with CKD3 resolving Plan Chronic pain - with acute worsening due to obstructing stone with hydronephrosis -Continue home hydrocodone-acetaminophen -Continue home Gabapentin (written for 300mg po TID - patient reports only taking 300mg at night). -Dilaudid PRN for acute pain GERD - chronic. stable -Continue Protonix 40mg po daily CAD - patient with history of LAD stent with restenosis in 2018 s/p re-stenting. Additional disease involving distal LM, RCA. No chest pain. -Continue Plavix Discharge Exam pt seem before and after procedure, pain controlled feels comfortable going home Updated Medication List Medication Instructions Recorded Confirmed Type clopidogrel 75 mg tablet (Plavix) 75 mg PO HS 05/28/19 11/28/23 History gabapentin 300 mg capsule 300 mg PO TID 05/28/19 11/28/23 History ibuprofen 200 mg tablet (Advil) 400 mg PO Q6H PRN Pain 10/23/20 11/22/23 History tamsulosin 0.4 mg capsule (Flomax) 0.4 mg PO QPM #30 caps 11/22/23 11/28/23 Rx ciprofloxacin HCl 500 mg tablet 500 mg PO BID #6 tabs 11/28/23 Rx (Cipro) hydrocodone 5 mg-acetaminophen 325 1 tab PO Q6H PRN pain #15 tabs 11/28/23 Rx mg tablet pantoprazole 40 mg tablet,delayed 40 mg PO DAILY 11/28/23 11/28/23 History release Hospital Stay Data Consultations 11/28/23 03:49 ED Decision to Admit Stat 11/28/23 04:16 Consult Urology Routine Procedures Performed Operation Date: 11/28/23 10:00 Actual Procedures p Cystoscopy, Right Ureteroscopy, Laser Lithotripsy, (Right) - Garry Davis DO s Right Stent Placement - Garry Davis DO Diagnostic Imagining Performed 11/28/23 FL retrograde includes kub Routine 11/28/23 01:20 CT abd pelvis wo con Stat Pending Results Patient Have Any Pending Studies at Discharge: Yes Discharge Instructions Given to Patient (Per Discharging Provider) Ureteral (say "wvw-OFV-rwo-ul") stent is a thin, hollow tube that is placed in the ureter to help urine pass from the kidney into the bladder. Ureters are the tubes that connect the kidneys to the bladder. You may have a small amount of blood in your urine for 1 to 3 days after the procedure. While the stent is in place, you may have to urinate more often, feel a sudden need to urinate, or feel like you can't completely empty your bladder. You may feel some pain when you urinate or do strenuous activity. You also may notice a small amount of blood in your urine after strenuous activities. These side effects usually don't prevent people from doing their normal daily activities. You may have a thin string coming out of your urethra. Your urethra is the tube that carries urine from your bladder to outside your body. This string is attached to the stent. Try not to pull on the string. It will be used to pull out the stent when you no longer need it. After the procedure, urine may flow better from your kidneys to your bladder. A ureteral stent may be left in place for several days or for as long as several months. Your doctor will take it out when you no longer need it. Or, in some cases, it may be taken out at home. How can you care for yourself at home? Rest when you feel tired. Getting enough sleep will help you recover. Avoid strenuous activities, such as bicycle riding, jogging, weight lifting, or aerobic exercise, until your doctor says it is okay. Ask your doctor when you can drive again. Most people are able to return to work the day after the procedure. If your work requires intense activity, you may feel pain in your kidney area or get tired easily. If this happens, you may need to do less strenuous activities while the stent is in. Diet You can eat your normal diet. If your stomach is upset, try bland, low-fat foods like plain rice, broiled chicken, toast, and yogurt. Drink plenty of fluids (unless your doctor tells you not to). Medicines Your doctor will tell you if and when you can restart your medicines. You will also get instructions about taking any new medicines. If you stopped taking aspirin or some other blood thinner, your doctor will tell you when to start taking it again. Be safe with medicines. Take pain medicines exactly as directed. If the doctor gave you a prescription medicine for pain, take it as prescribed. If you are not taking a prescription pain medicine, ask your doctor if you can take an iyrr-pca-wpjmorl medicine. If you think your pain medicine is making you sick to your stomach: Take your medicine after meals (unless your doctor has told you not to). Ask your doctor for a different pain medicine. If your doctor prescribed antibiotics, take them as directed. Do not stop taking them just because you feel better. You need to take the full course of antibiotics. Follow-up care is a resendez part of your treatment and safety. Be sure to make and go to all appointments, and call your doctor if you are having problems. It's also a good idea to know your test results and keep a list of the medicines you take. When should you call for help? Call 911 anytime you think you may need emergency care. For example, call if: You passed out (lost consciousness). You have severe trouble breathing. You have sudden chest pain and shortness of breath, or you cough up blood. You have severe belly pain. Call your doctor now or seek immediate medical care if: Part or all of the stent comes out of your urethra. You have pain that does not get better after you take pain medicine. You have symptoms of a urinary infection. For example: You have blood or pus in your urine. You have pain in your back just below your rib cage. This is called flank pain. You have a fever, chills, or body aches. It hurts to urinate. You have groin or belly pain. You cannot control when you urinate, or you leak urine. Watch closely for changes in your health, and be sure to contact your doctor if you have any problems. Total Time Total Time Spent Total Time Spent (In Minutes): greater than 30 minutes required to discharge Coding Level of Care Code 72568 INP/OBS DISCH >30 MIN Diagnoses Kidney stones N20.0 JASON (acute kidney injury) N17.9
[2023-11-28] MEDS ORDERED: GABAPENTIN 300 MG CAP PO SCH (21:00)
[2023-11-28] MEDS ORDERED: TAMSULOSIN HCL 0.4 MG CAP PO SCH (21:00)
[2023-11-28] MEDS ORDERED: CLOPIDOGREL BISULFATE 75 MG TAB PO SCH (21:00)
--- NOTE | 2023-11-29 09:00 | Fluoroscopy Report ---
FL retrograde includes kub CLINICAL HISTORY: Right ureteral stent placement. COMPARISON STUDY: None. FLUOROSCOPY TIME: 36 seconds FLUOROSCOPY IMAGES: 2 Ka,r: 24.9 mGy FINDINGS: Retrograde opacification the right renal collecting system followed by placement of a right ureteral stent. The ureteral stent appears in good position. IMPRESSION: Fluoroscopic assistance as above ACT 112: Negative or not required by law. Electronically signed by: Manuel Maradiaga M.D. 11/29/2023 8:59 AM
== END 2023-11-28 17:51 | disposition home or self-care (01) ==
LOC: ED 20:50 → SUATTDRO 11-28 04:16 → 3N 11-28 04:16 → INTOOBSV 11-28 04:16 → 3N 11-28 04:52